=== PATIENT | male | born 1955 | race Caucasian/White ===

== ENCOUNTER 2019-11-06 18:55 | Emergency (ER) | payer OTHER ==
[~2019-11-06] VITALS: Ht 180.3 cm; Wt 95.3 kg
[~2019-11-06 18:55] MED LIST: NAPR500T14 PO; TAMS0.4C PO
[2019-11-06] MEDS ORDERED: ASPIR 8181 MG (19:55)
[2019-11-06] MEDS ORDERED: TOPROL XL25 M1 PO (19:55)
[2019-11-07] MEDS ORDERED: KETO10TA2 PO (08:03)
== END 2019-11-07 08:38 | disposition home or self-care (01) ==
LOC: ER 18:55
DX: K80.80 Other cholelithiasis without obstruction (principal)